=== PATIENT | female | born 1985 ===

== ENCOUNTER 2022-04-18 23:40 | Emergency (ER) | payer SELFPAY ==
--- OUTSIDE RECORDS SUMMARY | 2022-04-18 23:42 | XMS REPORT | Continuity of Care Document ---
:1985 Author Organization [facility] t Address [address] [facility]. [address] [place] [address] Care Team Providers Name Role Phone DR KATALINA GUADALUPE Attending Clinician Unavailable SADIE, DR BENAVIDEZ Attending Clinician Unavailable DR KATALINA GUADALUPE Admitting Clinician Unavailable DR REEMA NOEL Admitting Clinician Unavailable Problems Condition Condition Condition Status Onset Resolution Last Treating Co mments Source Name Details Category Date Date Treatment Clinician Date Complicati Complicati Disease Active 2015-[address] [facility] of ons of 03-10 [employer] internal internal 00:00: Medica l orthopedic orthopedic 00 Ce nter device, device, implant, implant, and graft and graft Ankle Ankle Disease Active 2015-[address] [facility] [address] fracture, fracture, 03-10 [facility] bimalleola bimalleola 00:00: Me dical r, closed, r, closed, 00 Ce nter left, left, sequela sequela Allergies, Adverse Reactions, Alerts This patient has no known allergies or adverse reactions. Social History Social Habit Start Date Stop Date Quantity Comments Source Alcohol intake 2016-01-10 2016-01-[address] [facility] 00:00:00 00:00:00 non-drinker of Medical Ce nter alcohol (finding) [place]? 2014-10-13 2014-10-13 [facility] 00:00:00 00:00:00 Sex [birth year] At [birth year] [facility] Smoking Status Start Date Stop Date Source Never smoker [facility] Medications Ordered Filled Start Stop Current Ordering Indication Dosage Frequency Signature Comments Components Source Medication Medication Date Date Medication? Clinician (SIG) Name Name ALPRAZolam 2015-02 Yes 2mg Take [address] (XANAX) 2 03-11 [facility] tablet 08:25: every [facility] 28 night as Center needed for Sleep. ALPRAZolam 2015-02 Yes 2mg Take [address] (XANAX) 2 03-11 [facility] tablet 08:25: every Medical 28 night as Center needed for Sleep. ALPRAZolam 2015-02 Yes 2mg Take [address] (XANAX) 2 03-11 [facility] tablet 08:25: every [facility] 28 night as Center needed for Sleep. Procedures This patient has no known procedures. Encounters Start End Encounter Admission Attending Care Care Encounter Source Date/Time Date/Time Type Type Clinicians Facility Department ID 2021-03-07 2021-03-07 Outpatient [facility] 00:00:00 00:00:00 [facility]-2021-02-20 2021-02-20 Outpatient [facility] 00:00:00 00:00:00 [facility] 12 2021-02-15 2021-02-15 Outpatient [facility]BCOVID F[facility]OVID [id number] [facility] 00:00:00 00:00:00 [id number] 2018-10-08 2018-10-08 Emergency E [facility] [id number] [facility] 12:43:00 12:43:00 2018-03-20 2018-03-20 Emergency E [facility] [id number] [place] 14:28:00 15:38:00 KATALINA [facility] [place] 2016-07-11 2016-07-11 Emergency E NOELJEANH [facility] [id number] [place] 01:08:00 01:46:00 Medica l Center 2014-10-20 2014-10-20 [place] [id number] 397-3 [facility] 19:38:00 19:38:00 results r Women s [id number] l Health/ C. [id number] meenakshi Mcleod [id number] MD Mandi, PhD, [place] 2014-10-20 2014-10-20 [place] [id number] 397-3 [facility] 19:38:00 19:38:00 results r Women s [id number] l Health/ C. [id number] He meenakshi Mcleod [id number] MD Mandi, PhD, [place] 2014-10-20 2014-10-20 [facility] cf4cf 6d0-f [facility] 19:38:00 19:38:00 results r Women s [id number] l Health/ C. [id number] He meenakshi Mcleod [id number] Raymond MD, PhD, [place] 2014-10-20 2014-10-20 [facility] cf4cf 6d0-f [facility] 19:38:00 19:38:00 results r Women s [id number] l Health/ C. [id number] He meenakshi Mcleod [id number] MD Mandi, PhD, [place] 2014-10-20 2014-10-20 [facility] [place] [id number] 397-3 [facility] 19:38:00 19:38:00 results r Women s [id number]-[id number] l Health/ C. [id number] He meenakshi Mcleod [id number] MD Mandi, PhD, [place] 2014-10-20 2014-10-20 [facility] cf4cf 6d0-f [facility] 19:38:00 19:38:00 results r Women s [id number] l Health/ C. [id number] He meenakshi Mcleod [id number] MD Mandi, PhD, [place] 2014-10-20 2014-10-20 Outpatient [id number] [facility] 14:38:00 14:38:00 For Women Women s alWo rks s Health/ Health/ C. C. Mandi Collazo MD, PhD, MD, PhD, PA PA 2014-10-20 2014-10-20 Outpatient [id number] [facility] 14:38:00 14:38:00 For Women Women s alWo rks s Health/ Health/ C. C. Mandi Collazo MD, PhD, MD, PhD, PA PA 2014-10-15 2014-10-15 [facility] [id number] f9e-f [facility] 15:59:00 15:59:00 results r Women s [id number]-[id number] l Health/ C. [id number] He meenakshi Mcleod [id number] MD Mandi, PhD, [place] 2014-10-15 2014-10-15 Test [facility] ddfe1 a77-4 [facility] 15:59:00 15:59:00 results r Women s [id number]-d l Health/ C. [id number] He meenakshi Mcleod 378marilyn Raymond MD, PhD, [place] 2014-10-15 2014-10-15 [facility] [place] [id number] f9e-f [facility] 15:59:00 15:59:00 results r Women s [id number]-[id number]-5 l Health/ C. [id number] He meenakshi Mcleod [id number] MD Mandi, PhD, [place] 2014-10-15 2014-10-15 [facility] [place] [id number] f9e-f [facility] 15:59:00 15:59:00 results r Women s [id number]-[id number]-1 l Health/ C. [id number] He meenakshi Mcleod [id number] Raymond MD, PhD, [place] 2014-10-15 2014-10-15 [facility] ddfe1 a77-4 [facility] 15:59:00 15:59:00 results r Women s [id number]-v l Health/ C. [id number] He meenakshi Mcleod 378ffvale Raymond MD, PhD, [place] 2014-10-15 2014-10-15 [facility] ddfe1 a77-4 [facility] 15:59:00 15:59:00 results r Women s [id number]-x l Health/ C. [id number] He meenakshi Mcleod 378ffvale Raymond MD, PhD, PA 2014-10-15 2014-10-15 Outpatient Center [id number] [facility]inic 10:59:00 10:59:00 For Women Women s alWo rks s Health/ Health/ C. C. Mandi Collazo MD, PhD, MD, PhD, PA PA 2014-10-15 2014-10-15 Outpatient Center [facility] [id number] eClinic 10:59:00 10:59:00 For Women Women s alWo rks s Health/ Health/ C. C. Mandi Collazo MD, PhD, MD, PhD, PA PA 2013-12-10 2013-12-10 would like [facility] For 03 [id number] [facility] 17:38:00 17:38:00 lab r Women s [id number] l results Health/ C. [id number] He meenakshi Mcleod [id number] Raymond MD, PhD, [place] 2013-12-10 2013-12-10 would like [facility] 03 [id number] [facility] 17:38:00 17:38:00 lab r Women s [id number] l results Health/ C. [id number] He meenakshi Mcleod [id number] Raymond MD, PhD, [place] 2013-12-10 2013-12-10 would like [facility] 03 [id number]-5 [facility] 17:38:00 17:38:00 lab r Women s 608-4851-9 l results Health/ C. [id number] meenakshi Mcleod [id number] Raymond MD, PhD, [place] 2013-12-10 2013-12-10 would like [place] [address] [id number] [facility] 16:38:00 16:38:00 lab r Women s 542-40dd-b l results Health/ C. [id number] He meenakshi Mcleod [id number] MD Mandi, PhD, [place] 2013-12-10 2013-12-[address] [facility] [id number] [facility] 16:38:00 16:38:00 lab r Women s 57a-482b-9 l results Health/ C. [id number] He meenakshi Mcleod [id number] Raymond MD, PhD, PA 2013-12-10 2013-12-10 [facility] [id number]-6 [facility] 16:38:00 16:38:00 lab r Women s 542-40dd-b l results Health/ C. [id number] He meenakshi Mcleod 6569jerilyn Raymond MD, PhD, PA 2013-12-10 2013-12-10 would like [facility] dc [id number] [facility] 16:38:00 16:38:00 lab r Women s [id number]-[id number]-9 l results Health/ C. [id number] He meenakshi Shani [id number] Raymond MD, PhD, PA 2013-12-10 2013-12-10 would like [facility] 83 [id number] [facility] 16:38:00 16:38:00 lab r Women s [id number]-b l results Health/ C. [id number] petereloy Mcleod 6569jerilyn Raymond MD, PhD, PA 2013-12-10 2013-12-10 would like [facility] dc [id number] [facility] 16:38:00 16:38:00 lab r Women s [id number]-482b-9 l results Health/ C. [id number] He meenakshi Shani [id number] Raymond MD, PhD, PA 2013-12-10 2013-12-10 Outpatient Center [facility] [id number] eClinic 11:38:00 11:38:00 For Women Women s alWo rks s Health/ Health/ C. C. Mandi Collazo MD, PhD, MD, PhD, PA PA 2013-12-10 2013-12-10 Outpatient Center [facility] [id number] eClinic 11:38:00 11:38:00 For Women Women s alWo rks s Health/ Health/ C. C. Mandi Collazo MD, PhD, MD, PhD, PA PA Results Test Description Test Time Test Comments Results Result Sourc e Comments CT HEAD W/O 2018-03-20 EXAMINATION: CT HEAD CONTRAST *WW* 15:11:37 W/O CONTRAST *WW*.LOCATION: S17.HISTORY: Headache.COMPARISON: CT head 07/03/16.TECHNIQUE: Routine CT of the head was performed without intravenous contrast asper protocol. One or more the following dose reduction techniques were used:Automated exposure control, adjustment of mA and/or kV according to patientsize, and use of iterative reconstruction technique.FINDINGS: Brain Parenchyma: No hemorrhage or infarction. No mass effect or midline shift.Extra Axial Spaces: Unremarkable.Ventricu lar System: Unremarkable.Osseous Structures: Unremarkable.Visualiz ed Paranasal Sinuses: Unremarkable.IMPRESSI ON: No acute intracranial abnormality nor hemorrhage. URINE MONOCLONAL *WW* 2018-03-20 14:58:00 Test Item Value Reference Range Interpretation Comme nts PREG UR (test code = PGU) NEGATIVE NEGATIVE CT HEAD W/O [id number] 20:48:44Location [id number] CT BRAINHistory: Head injury with head painCOMPARISON: CT brain dated 07/01/12.TECHNIQUE : Serial axial CT of the brain obtained without the use ofintravenous contrast in the bra in and bone window settings. One or more of thefollowing dose reduction techniques were used: Automated exposure control,adjustment of the mAs and Kv. According to patient size, use of iterativereconstruction reconstruction technique. DLP 598 mGy-cm.FINDINGS:There is no evidence of acute cerebrovascular injury, mass effect or midlineshift. No evidence of subarachnoid hemorrhage, intracerebral hematoma, orextraaxial fluid collections. Ford-white differentiation is maintained. Basalcisterns are preserved.Osseous structures are unremarkable. The orbits appear normal. The visibleparanasal sinuses and ma stoid air spaces are clear. If symptomatology persists, correlation with MRI may be of further benefit.IMPRESSION:No evidence of acute intracranial process.
[2022-04-19 00:01] LABS: Urine Blood Negative (Negative); Urine Glucose Negative (Negative); Urine Protein Negative (Negative)
[2022-04-19] MEDS ORDERED: METOCLOPRAMIDE 10 MG/2mL INJ ONE (00:55)
[2022-04-19] MEDS ORDERED: DICYCLOMINE HCL 20 MG/2 ML AMP IM ONE (00:55)
[2022-04-19 01:11] LABS: Urine Bacteria None Seen /HPF (<20); Urine RBC None Seen /HPF (None Seen)
[2022-04-19 01:13] LABS: Absolute Lymphocytes (CBC) 1.5 K/uL (0.7-4.9); Hematocrit 38.4 % (36.0-45.0); Lymphocytes % 16.5 % (15.3-44.8); MCV 83.3 fL (80-100)
[2022-04-19] MEDS ORDERED: NA CHLORIDE 0.9% 1,000 ML ONE (01:14)
[2022-04-19 01:30] LABS: Albumin 3.9 g/dL (3.4-5.0); Bilirubin Total 0.3 mg/dL (0.2-1.0); Potassium 3.7 mmol/L (3.5-5.1)
[2022-04-19 05:40] VITALS: O2SAT 100
[2022-04-19 05:41] VITALS: BP 106/84; TEMP 98.2
--- NOTE | 2022-04-19 14:24 | RAD REPORT ---
EXAM DESCRIPTION: CT - Head Brain Wo Cont - 04/19/2022 3:53 am CLINICAL HISTORY: The patient is 36 years old and is Female; HEADACHE TECHNIQUE: Axial computed tomography images of the head/brain without intravenous contrast. Sagitt al and coronal reformatted images were created and reviewed. This CT exam was performed using one o r more of the following dose reduction techniques: automated exposure control, adjustment of the mA and/or kV according to patient size, and/or use of iterative reconstruction technique. COMPARISON: No relevant prior studies available. FINDINGS: Brain: Unremarkable. No hemorrhage. No significant white matter disease. No edema. Ventricles: Unremarkable. No ventriculomegaly. Bones/joints: Unremarkable. No acute fracture. Soft tissues: Unremarkable. Sinuses: Unremarkable as visualized. Mastoid air cells: Unremarkable as visualized. No mastoid effusion. IMPRESSION: No acute intracranial abnormality. Electronically signed by: Juan Aguilar MD 04/19/2022 3:18 AM SUPERVISOR PHOSPHATIC FERTILIZER Due to temporary technical issues with the PACS/Fluency reporting system, reports are being signed by the in house radiologists without review as a courtesy to insure prompt reporting. The interpreting radiologist is fully responsible for the content of the report.
--- NOTE | 2022-04-19 14:26 | RAD REPORT ---
EXAM DESCRIPTION: CT - Abdomen Pelvis W Contrast - 04/19/2022 3:54 am CLINICAL HISTORY: The patient is 36 years old and is Female; ABD PAIN TECHNIQUE: Axial computed tomography images of the abdomen and pelvis with intravenous contrast. S agittal and coronal reformatted images were created and reviewed. This CT exam was performed using one or more of the following dose reduction techniques: automated exposure control, adjustment of t he mA and/or kV according to patient size, and/or use of iterative reconstruction technique. COMPARISON: No relevant prior studies available. FINDINGS: Lung bases: Unremarkable. No mass. No consolidation. ABDOMEN: Liver: Unremarkable. No mass. Gallbladder and bile ducts: Gallbladder is surgically absent. No ductal dilation. Pancreas: Unremarkable. No mass. No ductal dilation. Spleen: Unremarkable. No splenomegaly. Adrenals: Unremarkable. No mass. Kidneys and ureters: Unremarkable. No solid mass. No hydronephrosis. Stomach and bowel: Unremarkable. No obstruction. No mucosal thickening. PELVIS: Appendix: No findings to suggest acute appendicitis. Bladder: Unremarkable. Reproductive: Corpus luteum cyst in the right ovary. Slightly heterogeneous appearance to the cervix/lower uterine segment. Consider pelvic ultra sound for further evaluation if clinically indicated. ABDOMEN and PELVIS: Intraperitoneal space: Unremarkable. No free air. No significant fluid collection. Bones/joints: No acute fracture. No dislocation. Soft tissues: Unremarkable. Vasculature: Unremarkable. No abdominal aortic aneurysm. Lymph nodes: Unremarkable. No enlarged lymph nodes. IMPRESSION: No acute finding in the abdomen/pelvis. Electronically signed by: Juan Aguilar MD 04/19/2022 3:23 AM CURRICULUM SUPERVISOR Due to temporary technical issues with the PACS/Fluency reporting system, reports are being signed by the in house radiologists without review as a courtesy to insure prompt reporting. The interpreting radiologist is fully responsible for the content of the report.
--- NOTE | 2022-05-04 15:24 | EDPHYS ---
Physician Documentation [facility] Name: Ree Mccabe Age: 36 yrs Sex: Female : 1985 Arrival Date: 04/18/2022 Time: 23:41 Bed 11 Private MD: ED Physician Mauricio Hunt HPI: 04/19 00:05 This 36 yrs old Female presents to ER via Ambulatory with complaints of Abdominal Pain, cp Headache. 00:05 The patient presents with abdominal pain in the lower abdomen. Onset: The cp symptoms/episode began/occurred today. Associated signs and symptoms: Pertinent positives: nausea, left side headache, urinary frequency, Pertinent negatives: anorexia, chest pain, constipation, diarrhea, fever. The symptoms are described as achy, waxing/waning. 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 - Social history:: Smoking status: Reported history of juuling and/or vaping. ROS: 04/19 00:10 Constitutional: Negative for body aches, chills, fever, poor PO intake. cp 00:10 Eyes: Negative for injury, pain, redness, and discharge. cp 00:10 ENT: Positive for left ear pressure, Negative for drainage from ear(s), sore throat, difficulty swallowing, difficulty handling secretions. 00:10 Cardiovascular: Negative for chest pain, edema, palpitations. 00:10 Respiratory: Negative for cough, shortness of breath, wheezing. 00:10 Abdomen/GI: Positive for abdominal pain, nausea, of the right lower quadrant and left lower quadrant, Negative for vomiting, diarrhea, constipation. 00:10 Back: Negative for pain at rest, pain with movement. 00:10 : Positive for urinary frequency, Negative for hematuria, burning with urination, vaginal bleeding. Exam: 00:15 Constitutional: The patient appears in no acute distress, alert, awake, non-toxic, well cp developed, well nourished. 00:15 Head/Face: Normocephalic, atraumatic. cp 00:15 Eyes: Periorbital structures: appear normal, Conjunctiva: normal, no exudate, no injection, Sclera: no appreciated abnormality, Lids and lashes: appear normal, bilaterally. 00:15 ENT: External ear(s): are unremarkable, Ear canal(s): are normal, clear, TM's: dullness, bilaterally, Nose: is normal, Mouth: Lips: moist, Oral mucosa: pink and intact, moist, Posterior pharynx: Airway: no evidence of obstruction, patent. 00:15 Chest/axilla: Inspection: normal, Palpation: is normal, no crepitus, no tenderness. 00:15 Cardiovascular: Rate: normal, Rhythm: regular. 00:15 Respiratory: the patient does not display signs of respiratory distress, Respirations: normal, no use of accessory muscles, no retractions, labored breathing, is not present, Breath sounds: are clear throughout, no decreased breath sounds, no stridor, no wheezing. 00:15 Abdomen/GI: Inspection: abdomen appears normal, Bowel sounds: active, all quadrants, Palpation: soft, in all quadrants, mild abdominal tenderness, in the right lower quadrant and left lower quadrant, rebound tenderness, is not appreciated, involuntary guarding, is not appreciated. 00:15 Back: pain, is absent, ROM is normal. 00:15 Skin: no rash present. 00:15 Neuro: Orientation: to person, place \T\ time. Mentation: is normal, Cerebellar function: is grossly normal, Motor: moves all fours, strength is normal, Sensation: is normal. Vital Signs: 04/18 23:47 BP 147 / 104; Pulse 74; Resp 16 S; Temp 98.3(O); Pulse Ox 99% on R/A; Weight 61.23 kg bb (R); Height 5 ft. 0 in. (R); Pain 8/10; 04/19 01:00 BP 122 / 84; Pulse 73; Resp 16 S; Pulse Ox 100% on R/A; bb 04:21 BP 106 / 84; Pulse 97; Resp 16 S; Temp 98.2(O); Pulse Ox 100% on R/A; bb 04/18 23:47 Body Mass Index 26.37 (61.23 kg, 152.4 cm) bb 04/18 23:47 Pain Scale: Adult bb MDM: 00:00 Patient medically screened. cp 00:30 Differential diagnosis: appendicitis, bowel obstruction, cholecystitis, Cholelithiasis, cp Endometriosis, gastritis, non-specific abd pain, Ovarian Torsion, pancreatitis, Pelvic Inflammatory Disease, Pyelonephritis, Ureterolithiasis, urinary tract infection. 03:00 Transition of care: After a detail discussion of the patient's case, care is cp transferred to Mauricio Hunt MD. 04:21 Data reviewed: vital signs, nurses notes. ED course: Patient notes that she developed bs3 anxiety and a panic attack and then some crampy abdominal pain I reassessed the patient and she was sleeping comfortably feeling much better her CT was negative for acute pathology but was notable for a corpus luteum cyst and a heterogeneous cervix advised outpatient MATERIAL DISPOSITION INSPECTOR follow-up. 03 00:01 Order name: Urine Dipstick-Ancillary; Complete Time: 00:40 EDMS 04/19 00:02 Order name: Urine --Ancillary (enter results); Complete Time: 00:40 rv1 04/19 00:04 Order name: Urine Dipstick-Ancillary EDMS 04/19 00:04 Order name: Urine Microscopic Only; Complete Time: 02:03 cp 04/19 00:04 Order name: CBC with Diff; Complete Time: 02:03 cp 04/19 02:03 Interpretation: Normal except: DIMITRY% 77.3. cp 04/19 00:04 Order name: CMP; Complete Time: 02:03 cp 04/19 02:03 Interpretation: Normal except: BUN 6. cp 04/19 00:04 Order name: Lipase; Complete Time: 02:03 cp 04/19 00:41 Order name: CT Head Brain wo Cont cp 04/19 00:41 Order name: CT Abd/Pelvis - IV Contrast Only cp 04/19 00:04 Order name: IV Saline Lock; Complete Time: 01:08 cp 04/19 00:04 Order name: Labs collected and sent; Complete Time: 01:08 cp Administered Medications: 00:56 Drug: Dicyclomine IM 20 mg Route: IM; Site: right gluteus; bb 02:00 Follow up: Response: No adverse reaction bb 01:08 Drug: metoCLOPramide IVP 10 mg Route: IVP; Site: right antecubital; bb 02:00 Follow up: Response: No adverse reaction bb 01:08 Drug: NS 0.9% IV 1000 ml Route: IV; Rate: 1 bolus; Site: right antecubital; bb 02:00 Follow up: IV Status: Completed infusion; IV Intake: 900ml bb Disposition: 04:21 Co-signature as Attending Physician, Mauricio Hunt MD I reviewed the patient's care bs3 provided by Advanced Practice Provider \T\ agree w/ the diagnosis \T\ care plan. I personally saw the pt \T\ performed a substantive portion of the visit, incldng all aspects of the (History/Exam/Medical Decision Making). Disposition Summary: 04/19/22 04:22 Discharge Ordered Location: Home bs3 Problem: new bs3 Symptoms: have improved bs3 Condition: Stable bs3 Diagnosis - Abdominal pain, Generalized bs3 Followup: bs3 - With: Private Physician - When: 5 - 6 days - Reason: Re-evaluation by your physician Discharge Instructions: - Discharge Summary Sheet bs3 - Abdominal Pain, Adult bs3 Forms: - Family Work Release vc1 - Medication Reconciliation Form bs3 - Thank You Letter bs3 - Antibiotic Education bs3 - Prescription Opioid Use bs3 Signatures: Dispatcher [employer] Meri Yanes, RN RN Jorge Bennett PA PA Mauricio Finch MD MD bs3
--- NOTE | 2022-05-04 15:24 | ER ---
Nurse's Notes [facility] Name: Ree Mccabe Age: 36 yrs Sex: Female : 1985 Arrival Date: 04/18/2022 Time: 23:41 Bed 11 Private MD: Diagnosis: Abdominal pain, Generalized Presentation: 04/18 23:47 Chief complaint: Patient states: about 2 hours ago she started having abdominal bb pressure, pain and is having urinary frequency denies pain with urination also is feeling pressure on the left side of her head. Coronavirus screen: At this time, the client does not indicate any symptoms associated with coronavirus-19. Ebola Screen: No symptoms or risks identified at this time. Initial Sepsis Screen: Does the patient meet any 2 criteria? No. Patient's initial sepsis screen is negative. Does the patient have a suspected source of infection? No. Patient's initial sepsis screen is negative. Risk Assessment: Do you want to hurt yourself or someone else? Patient reports no desire to harm self or others. Onset of symptoms was April 18, 2022. 23:47 Method Of Arrival: Ambulatory bb 23:47 Acuity: DIAMOND 3 bb Triage Assessment: 23:51 General: Appears in no apparent distress. uncomfortable, Behavior is calm, anxious. bb Pain: Complains of pain in abdomen Pain currently is 7 out of 10 on a pain scale. Neuro: Level of Consciousness is awake, alert, obeys commands, Oriented to person, place, time, situation. Cardiovascular: Capillary refill < 3 seconds Patient's skin is warm and dry. Respiratory: Respiratory effort is even, unlabored, Respiratory pattern is regular. GI: Reports lower abdominal pain. : Reports urinary frequency. Derm: Skin is pink, warm \T\ dry. Musculoskeletal: Circulation, motion, and sensation intact. 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 - Social history:: Smoking status: Reported history of juuling and/or vaping. Screenin/09 01:00 [facility] ED Fall Risk Assessment (Adult) History of falling in the last 3 months, bb including since admission No falls in past 3 months (0 pts) Confusion or Disorientation No (0 pts) Intoxicated or Sedated No (0 pts) Impaired Gait No (0 pts) Score/Fall Risk Level 0 - 2 = Low Risk Oriented to surroundings, Maintained a safe environment. Abuse screen: Denies threats or abuse. Nutritional screening: No deficits noted. Tuberculosis screening: No symptoms or risk factors identified. Assessment: 00:59 Reassessment: No changes from previously documented assessment. Patient is alert, bb oriented x 3, equal unlabored respirations, skin warm/dry/pink. awaiting diagnostic results, family at bedside. 04:21 Reassessment: Patient is alert, oriented x 3, equal unlabored respirations, skin bb warm/dry/pink. Patient states feeling better. Patient states symptoms have improved. 04:39 Reassessment: Patient is alert, oriented x 3, equal unlabored respirations, skin bb warm/dry/pink. pt verbalized understanding of and agrees to plan of care discharge instructions given pt ambulated with steady gait to exit. Vital Signs: 04/18 23:47 BP 147 / 104; Pulse 74; Resp 16 S; Temp 98.3(O); Pulse Ox 99% on R/A; Weight 61.23 kg bb (R); Height 5 ft. 0 in. (R); Pain 8/10; 04/19 01:00 BP 122 / 84; Pulse 73; Resp 16 S; Pulse Ox 100% on R/A; bb 04:21 BP 106 / 84; Pulse 97; Resp 16 S; Temp 98.2(O); Pulse Ox 100% on R/A; bb 04/18 23:47 Body Mass Index 26.37 (61.23 kg, 152.4 cm) bb 04/18 23:47 Pain Scale: Adult bb ED Course: 04/18 23:41 Patient arrived in ED. ag3 23:45 Jorge Wu PA is PHCP. cp 23:45 Mauricio Hunt MD is Attending Physician. cp 23:51 Triage completed. bb 23:51 Arm band placed on Patient placed in waiting room, Patient notified of wait time. bb 04/19 00:18 Urine Dipstick-Ancillary Sent. rv1 00:59 Meri Pereira, RN is Primary Nurse. bb 01:00 Patient has correct armband on for positive identification. Bed in low position. Call bb light in reach. Side rails up X 1. Adult w/ patient. Warm blanket given. 01:00 No provider procedures requiring assistance completed. Inserted saline lock: 20 gauge bb in right antecubital area, using aseptic technique. ,using aseptic technique. by ED staff Blood collected. 02:29 CT Head Brain wo Cont In Process Unspecified. EDMS 02:29 CT Abd/Pelvis - IV Contrast Only In Process Unspecified. EDMS 03:14 Mauricio Hunt MD is Attending Physician. bs3 04:40 IV discontinued, intact, bleeding controlled, No redness/swelling at site. Pressure bb dressing applied. Administered Medications: 00:56 Drug: Dicyclomine IM 20 mg Route: IM; Site: right gluteus; bb 02:00 Follow up: Response: No adverse reaction bb 01:08 Drug: metoCLOPramide IVP 10 mg Route: IVP; Site: right antecubital; bb 02:00 Follow up: Response: No adverse reaction bb 01:08 Drug: NS 0.9% IV 1000 ml Route: IV; Rate: 1 bolus; Site: right antecubital; bb 02:00 Follow up: IV Status: Completed infusion; IV Intake: 900ml bb Medication: 01:00 VIS not applicable for this client. bb Intake: 02:00 IV: 900ml; Total: 900ml. bb Outcome: 04:22 Discharge ordered by . bs3 04:40 Discharged to home ambulatory, with family. bb 04:40 Condition: stable 04:40 Discharge instructions given to patient, Instructed on discharge instructions, follow up and referral plans. Demonstrated understanding of instructions, follow-up care. 04:40 Patient left the ED. bb Signatures: Dispatcher [employer] EDMeri Gutierrez RN RN bb Jorge Wu PA PA cp Gomez, Alice 3 Mauricio Hunt MD MD bs3 Olivia Brown 1
== END 2022-04-19 04:40 | disposition home or self-care (01) ==
LOC: ER 23:40
DX: R10.84 Generalized abdominal pain (principal)
CPT/HCPCS: 36415; 70450; 74177; 80053; 81003; 81015; 81025; 83690; 85025; 96361; 96372; 96374; 99284; J0500; J2765; J7030; Q9967